=== PATIENT | female | born 2000 | race American Indian/Alaskan Native ===

== ENCOUNTER 2020-09-24 04:07 | Emergency (ER) | payer SELFPAY ==
[2020-09-24] MEDS ORDERED: ONDANSETRON 4 MG ODT TAB PO ONE (04:44)
[2020-09-24] MEDS ORDERED: oxyCODONE /ACETAMINOPHEN 5-325MG TAB PO ONE (04:44)
[2020-09-24] MEDS ORDERED: AMOXICILLIN/K CLAV 875/125MG TAB PO ONE (04:44)
[2020-09-24] MEDS ORDERED: IBUPROFEN 600 MG TAB PO ONE (04:44)
--- NOTE | 2020-09-24 04:50 | Emergency Department Report ---
ED General Adult HPI - General Chief complaint: Dental/Oral Stated complaint: TOOTH PAIN PUI?: No - History of Present Illness Initial comments: Patient is a 20-year-old -[place] female with no past medical history who presents to the ED with complaint of acute onset persistent severe left mandibular premolar molar toothache with swollen gums for the last 6 hours, worse in the last 2 hours. Patient states that at the beginning she took ibuprofen 600 mg with mild relief. Patient denies headache, nausea, vomiting, fever, chills, cough, sore throat, traumatic injury, dizziness, chest pain or shortness of breath, nasal and sinus congestion or change in vision or abdominal pain. MD Complaint: Left mandibular premolar and molar toothache, swollen gums -: Sudden, hour(s) (6) Location: mouth Radiation: non-radiation Severity scale (0 -10): 8 Quality: aching, sharp Consistency: constant Improves with: none Worsens with: eating Associated Symptoms: denies other symptoms. denies: confusion, chest pain, cough, diaphoresis, fever/chills, headaches, loss of appetite, malaise, nausea/vomiting, rash, seizure, shortness of breath, syncope, weakness Treatments Prior to Arrival: NSAID - Related Data Previous Rx's Medication Instructions Recorded Last Taken Type Acetaminophen/Codeine [Tylenol 1 tab PO Q6H PRN #12 tab 09/24/20 Unknown Rx /Codeine # 3 tab] Clindamycin [Clindamycin CAP] 300 mg PO Q8HR #60 capsule 09/24/20 Unknown Rx Ibuprofen [Motrin] 800 mg PO Q8HR PRN #30 tablet 09/24/20 Unknown Rx ED Review of Systems ROS: Stated complaint: TOOTH PAIN Other details as noted in HPI Constitutional: denies: chills, fever Eyes: denies: eye pain, eye discharge, vision change ENT: dental pain (Left mandibular premolar molar toothache with swollen gums). denies: ear pain, throat pain Respiratory: denies: cough, shortness of breath, wheezing Cardiovascular: denies: chest pain, palpitations Endocrine: no symptoms reported Gastrointestinal: denies: abdominal pain, nausea, vomiting, diarrhea Genitourinary: denies: urgency, dysuria, discharge Musculoskeletal: denies: back pain, joint swelling, arthralgia Skin: denies: rash, lesions Neurological: denies: headache, weakness, paresthesias Psychiatric: denies: anxiety, depression Hematological/Lymphatic: denies: easy bleeding, easy bruising ED Past Medical Hx - Medications Home Medications: Home Medications Medication Instructions Recorded Confirmed Last Taken Type Acetaminophen/Codeine [Tylenol 1 tab PO Q6H PRN #12 tab 09/24/20 Unknown Rx /Codeine # 3 tab] Clindamycin [Clindamycin CAP] 300 mg PO Q8HR #60 capsule 09/24/20 Unknown Rx Ibuprofen [Motrin] 800 mg PO Q8HR PRN #30 tablet 09/24/20 Unknown Rx ED Physical Exam - General General appearance: alert, in no apparent distress - Head Head exam: Present: atraumatic, normocephalic, normal inspection - Eye Eye exam: Present: normal appearance, PERRL, EOMI Pupils: Present: normal accommodation - ENT ENT exam: Present: mucous membranes moist, TM's normal bilaterally, normal external ear exam, other (Swollen, severely tender left mandibular gingiva with severely tender premolar and molar teeth) - Neck Neck exam: Present: normal inspection, full ROM - Respiratory Respiratory exam: Present: normal lung sounds bilaterally. Absent: respiratory distress, wheezes, rales, rhonchi, stridor, chest wall tenderness, accessory muscle use, decreased breath sounds - Cardiovascular Cardiovascular Exam: Present: regular rate, normal rhythm, normal heart sounds. Absent: systolic murmur, diastolic murmur, rubs, gallop - GI/Abdominal GI/Abdominal exam: Present: soft, normal bowel sounds. Absent: tenderness, guarding, rebound, hyperactive bowel sounds, hypoactive bowel sounds, organomegaly - Extremities Exam Extremities exam: Present: normal inspection, full ROM, normal capillary refill - Back Exam Back exam: Present: normal inspection, full ROM. Absent: tenderness, CVA tenderness (R), CVA tenderness (L), muscle spasm, paraspinal tenderness, vertebral tenderness - Neurological Exam Neurological exam: Present: alert, oriented X3, CN II-XII intact, normal gait, reflexes normal - Psychiatric Psychiatric exam: Present: normal affect, normal mood - Skin Skin exam: Present: warm, dry, intact, normal color. Absent: rash ED Medical Decision Making - Medical Decision Making This is a 20-year-old -[place] female with no past medical history who presents to the ED with complaint of acute onset persistent severe left mandibular premolar molar toothache with swollen gums for the last 6 hours, worse in the last 2 hours. Patient states that at the beginning she took ibuprofen 600 mg with mild relief. In the ED, patient is alert and oriented x3 and is not in distress but appears to be in significant pain. Patient was treated for pain in the ED and also given initial oral antibiotics in the ED. On reevaluation, patient's pain is well controlled medication. Patient was discharged home on pain medication and antibiotics and was given a referral to the [facility] [place] [facility] clinic for follow-up in 7 to 10 days for reevaluation. Patient was advised return to the ED immediately if symptoms get worse. - Differential Diagnosis Dental abscess; dental caries; gingivitis Critical care attestation.: If time is entered above; I have spent that time in minutes in the direct care of this critically ill patient, excluding procedure time. ED Disposition Clinical Impression: Dental abscess, Acute gingivitis, Dental caries Disposition: TO HOME OR SELFCARE Is pt being admited?: No Does the pt Need Aspirin: No Condition: Stable Instructions: Dental Abscess, [id number], Trench Mouth Additional Instructions: Take medication with food, drink plenty of fluids and follow-up with your primary care physician in 7 to 10 days for reevaluation. Return to the ED immediately if symptoms get worse. Prescriptions: Clindamycin [Clindamycin CAP] 300 mg PO Q8HR #60 capsule Ibuprofen [Motrin] 800 mg PO Q8HR PRN #30 tablet PRN Reason: Pain , Severe (7-10) Acetaminophen/Codeine [Tylenol /Codeine # 3 tab] 1 tab PO Q6H PRN #12 tab PRN Reason: severe pain Referrals: [facility] [place] [facility] [Outside] - 3-5 Days Forms: Work/School Release Form(ED) Time of Disposition: 04:50 Print Language: AUSTRIAN
[2020-09-24 05:17] VITALS: BP 122/68
== END 2020-09-24 05:17 | disposition home or self-care (01) ==
LOC: ED 04:07
DX: K04.7 Periapical abscess without sinus (principal); K05.00 Acute gingivitis, plaque induced; K02.9 Dental caries, unspecified; Z79.899 Other long term (current) drug therapy
CPT/HCPCS: 99282; Q0162

== ENCOUNTER 2021-06-20 21:09 | Emergency (ER) | payer MEDICAID ==
[2021-06-20] MEDS ORDERED: METOCLOPRAMIDE 10 MG/2 ML INJ IV STA (22:04)
[2021-06-20] MEDS ORDERED: SODIUM CHLORIDE 0.9% 1000 ML IV SOLN IV ONE (22:04)
[2021-06-20] MEDS ORDERED: diphenhydrAMINE 50 MG/ML VIAL IV STA (22:04)
[2021-06-20] MEDS ORDERED: PYRIDOXINE 50 MG TAB PO STA (22:04)
[2021-06-20 22:24] LABS: Basophils % (Auto) 0.5 % (0.0-1.8); Eosinophils % (Auto) 0.4 % (0.0-4.3); Hematocrit 33.8 % (30.3-42.9); Hemoglobin 11.6 gm/dl (10.1-14.3); Lymphocytes # (Auto) 0.9 K/mm3 (1.2-5.4); Lymphocytes % (Auto) 13.5 % (13.4-35.0); Mean Corpuscular HGB Conc 34 % (30-34); Mean Corpuscular Volume 88 fl (79-97); Monocytes # (Auto) 0.3 K/mm3 (0.0-0.8); Monocytes % (Auto) 4.9 % (0.0-7.3); Platelet Count 152 K/mm3 (140-440); Red Blood Count 3.87 M/mm3 (3.65-5.03); Red Cell Distribution Width 13.1 % (13.2-15.2)
[2021-06-20] MEDS ORDERED: SODIUM CHLORIDE 0.9% 500 ML 500 ML ONE (22:25)
[2021-06-20 22:47] LABS: Alanine Aminotransferase 7 units/L (7-56); Albumin 4.4 g/dL (3.9-5); Blood Urea Nitrogen 12 mg/dL (7-17); Calcium 9.1 mg/dL (8.4-10.2); Hemolysis Index 5
[2021-06-20 23:05] LABS: BUN/Creatinine Ratio 17
--- NOTE | 2021-06-21 01:32 | Emergency Department Report ---
ED N/V/D HPI - General Chief complaint: Nausea/Vomiting/Diarrhea Stated complaint: SICK/VOMITING Time Seen by Provider: 06/20/21 21:33 Source: patient Mode of arrival: Ambulatory Limitations: No Limitations - History of Present Illness Initial comments: 21-year-old 10-week female department planing of a few day history of increased nausea and vomiting not responding to home remedies and [id number] treatment. Reports no hemoptysis no hematemesis hematochezia, no fever, chills, sweats, no diarrhea, no chest pain or palpitation. MD complaint: nausea, vomiting -: Gradual Associated Abdominal Pain: No Location: diffuse Radiation: none Severity: mild Quality: aching, dull Consistency: constant Improves with: none Worsens with: none - Related Data Previous Rx's Medication Instructions Recorded Last Taken Type Acetaminophen/Codeine [Tylenol 1 tab PO Q6H PRN #12 tab 09/24/20 Unknown Rx /Codeine # 3 tab] Clindamycin [Clindamycin CAP] 300 mg PO Q8HR #60 capsule 09/24/20 Unknown Rx Ibuprofen [Motrin] 800 mg PO Q8HR PRN #30 tablet 09/24/20 Unknown Rx Doxylamine Succinate/Vit B6 1 each PO BID #20 tablet. 06/21/21 Unknown Rx [Fela Aguirre 10-10 mg Tablet] Allergies Allergy/AdvReac Type Severity Reaction Status Date / Time No Known Allergies Allergy Unverified 09/24/20 04:51 ED Review of Systems ROS: Stated complaint: SICK/VOMITING Other details as noted in HPI Comment: All other systems reviewed and negative ED Past Medical Hx - Past Medical History Previous Medical History?: No - Surgical History Past Surgical History?: No - Social History Smoking Status: Current Every Day Smoker Substance Use Type: None - Medications Home Medications: Home Medications Medication Instructions Recorded Confirmed Last Taken Type Acetaminophen/Codeine [Tylenol 1 tab PO Q6H PRN #12 tab 09/24/20 Unknown Rx /Codeine # 3 tab] Clindamycin [Clindamycin CAP] 300 mg PO Q8HR #60 capsule 09/24/20 Unknown Rx Ibuprofen [Motrin] 800 mg PO Q8HR PRN #30 tablet 09/24/20 Unknown Rx Doxylamine Succinate/Vit B6 1 each PO BID #20 tablet. 06/21/21 Unknown Rx [Fela Aguirre 10-10 mg Tablet] ED Physical Exam - General Limitations: No Limitations General appearance: alert, in no apparent distress - Head Head exam: Present: atraumatic, normocephalic - Eye Eye exam: Present: normal appearance, PERRL Pupils: Present: normal accommodation - ENT ENT exam: Present: normal exam, mucous membranes moist, TM's normal bilaterally - Neck Neck exam: Present: normal inspection, full ROM - Respiratory Respiratory exam: Present: normal lung sounds bilaterally. Absent: respiratory distress, rales, rhonchi, accessory muscle use, decreased breath sounds - Cardiovascular Cardiovascular Exam: Present: regular rate, normal rhythm. Absent: systolic murmur, diastolic murmur, rubs, gallop - GI/Abdominal GI/Abdominal exam: Present: soft, normal bowel sounds - Extremities Exam Extremities exam: Present: normal inspection - Back Exam Back exam: Present: normal inspection - Neurological Exam Neurological exam: Present: alert, oriented X3 - Psychiatric Psychiatric exam: Present: normal affect, normal mood - Skin Skin exam: Present: warm, dry, intact, normal color. Absent: rash ED Course Vital Signs 06/20/21 06/20/21 06/20/21 21:19 21:28 22:14 Temperature 97.9 F 98.7 F Pulse Rate 103 H 83 86 Respiratory 18 18 16 Rate Blood Pressure 127/79 Blood Pressure 211/104 127/83 [Right] O2 Sat by Pulse 99 99 99 Oximetry 06/20/21 06/20/21 06/20/21 22:17 22:30 22:48 Temperature Pulse Rate Respiratory Rate Blood Pressure 127/83 121/68 119/78 Blood Pressure [Right] O2 Sat by Pulse Oximetry 06/20/21 06/20/21 06/21/21 23:18 23:48 00:18 Temperature Pulse Rate Respiratory Rate Blood Pressure 121/71 117/64 114/66 Blood Pressure [Right] O2 Sat by Pulse Oximetry 06/21/21 06/21/21 00:49 01:02 Temperature Pulse Rate Respiratory Rate Blood Pressure 53/32 Blood Pressure 99/53 [Right] O2 Sat by Pulse Oximetry ED Medical Decision Making - Lab Data Result diagrams: 06/20/21 22:00 06/20/21 22:00 - Medical Decision Making Female presents emergency department complaining of nausea and vomiting without diarrhea. The patient is overall well-appearing and suspected to have hyperemesis gravidarum. Given the history of examination he does not appear to be an emergency cause for the symptoms such as small bowel obstruction, coronary syndrome, bowel ischemia, DKA, pancreatitis, appendicitis, acute abdomen no emergent problem. Patient was treated with Reglan, Benadryl, fluids as well as vitamin D6. After treatment patient is feeling much better tolerating p.o. fluids shows no signs of dehydration Critical care attestation.: If time is entered above; I have spent that time in minutes in the direct care of this critically ill patient, excluding procedure time. ED Disposition Clinical Impression: Hyperemesis gravidarum Disposition: HOME / SELF CARE / HOMELESS Is pt being admited?: No Does the pt Need Aspirin: No Condition: Stable Instructions: Hyperemesis Gravidarum Prescriptions: Doxylamine Succinate/Vit B6 [Fela Aguirre 10-10 mg Tablet] 1 each PO BID #20 tablet. Referrals: [facility] [Provider Group] - 3-5 Days [facility] [Provider Group] - 3-5 Days [facility] [Primary Care Provider] - 3-5 Days
[2021-06-21 01:34] VITALS: BP 111/74
== END 2021-06-21 01:34 | disposition home or self-care (01) ==
LOC: ED 21:09
DX: O21.0 Mild hyperemesis gravidarum (principal); F17.200 Nicotine dependence, unspecified, uncomplicated; Z79.899 Other long term (current) drug therapy; Z3A.10 10 weeks gestation of pregnancy
CPT/HCPCS: 36415; 80053; 83690; 84702; 85025; 96361; 96374; 96375; 99283; J1200; J2765; J7030; J7040

== ENCOUNTER 2021-10-10 11:28 | Outpatient (CLI) | payer MEDICAID ==
[2021-10-10] MEDS ORDERED: LACTATED RINGERS 1,000 ML IV ONE (11:55)
[2021-10-10 12:32] VITALS: BP 104/65
[2021-10-10 12:47] LABS: Bilirubin,Urine NEG (Negative); Blood,Urine NEG (Negative); Color,Urine Yellow (Yellow); Mucus,Urine FEW /HPF; Protein,Urine <15 mg/dL mg/dL (Negative); Urobilinogen,Urine < 2.0 mg/dL (<2.0)
== END 2021-10-10 13:01 | disposition home or self-care (01) ==
LOC: TRG 11:28 → APU 11:32 → TRG 13:01
PROVIDERS: ATTEND Obstetrics & Gynecology
DX: Z34.92 Encounter for supervision of normal pregnancy, unspecified, second trimester (principal); Z3A.26 26 weeks gestation of pregnancy
CPT/HCPCS: 59025; 81001

== ENCOUNTER 2021-11-01 12:41 | Outpatient (CLI) | payer MEDICAID ==
[2021-11-01] MEDS ORDERED: LACTATED RINGERS 1,000 ML IV ONE (13:25)
[2021-11-01] MEDS ORDERED: LACTATED RINGERS 500 ML IV ONE (14:38)
[2021-11-01] MEDS ORDERED: ONDANSETRON 4 MG/2 ML INJ IV ONE (15:00)
[2021-11-01] MEDS: TERBUTALINE 1 MG/1 ML INJ SUB-Q SCH ×2 (15:00→15:33)
[2021-11-01 15:18] VITALS: BP 119/67
[2021-11-01 15:40] LABS: Bilirubin,Urine NEG (Negative); Blood,Urine NEG (Negative); Color,Urine Yellow (Yellow); Mucus,Urine 2+ /HPF; Urobilinogen,Urine < 2.0 mg/dL (<2.0); WBC,Urine < 1.0 /HPF (0.0-6.0)
== END 2021-11-01 16:35 | disposition home or self-care (01) ==
LOC: TRG 12:41 → APU 12:43 → TRG 16:35
PROVIDERS: ATTEND Student in an Organized Health Care Education/Training Program
DX: O21.2 Late vomiting of pregnancy (principal); O62.9 Abnormality of forces of labor, unspecified; Z3A.29 29 weeks gestation of pregnancy
CPT/HCPCS: 59025; 81001; 96361; 96365; 96372; J2405; J3105; J7120; 96360